=== PATIENT | female | born 1975 | race Two or more races ===

== ENCOUNTER 2021-03-09 09:05 | Emergency (ER) | payer SELFPAY ==
[2021-03-09 09:23] VITALS: BP 133/79; PULSE 82; TEMP 98.5; BMI 21.2
== END 2021-03-09 10:28 | disposition home or self-care (01) ==
LOC: JER 09:05
DX: J18.9 Pneumonia, unspecified organism (principal); Z11.52 Encounter for screening for COVID-19
CPT/HCPCS: 71046-TC-FY; 99283-25; C9803; U0003; U0005

== ENCOUNTER 2021-09-13 07:24 | Emergency (ER) | payer BC ==
[2021-09-13 07:48] VITALS: BP 118/70; PULSE 75; TEMP 98.4; BMI 23.0
[2021-09-13] MEDS ORDERED: ACETAMINOPHEN 500 MG TABLET (FP) PO ONE (08:48)
[2021-09-13] MEDS ORDERED: DALBAVANCIN HCL 1,500 MG in DEXTROSE 5%-WATER - 500 ML IVPB ONE (08:48)
[2021-09-13] MEDS ORDERED: DALBAVANCIN HCL 500 MG VIAL (RESTRICTED TO ID ONLY) IVPB ONE (09:36)
[2021-09-13] MEDS ORDERED: ACETAMINOPHEN 500 MG TABLET (FP) ONE (09:40)
[2021-09-13 10:26] LABS: BASO % 0.6 % (0-2.0); EOS % 0.9 % (0-4.5); HEMATOCRIT 36.8 % (32.4-45.2); HEMOGLOBIN 12.2 GM/dL (10.7-15.3); LYMPH % 19.3 % (8-40); MCH 27.6 pg (25.7-33.7); MCHC 33.2 g/dl (32.0-36.0); MEAN PLT VOLUME 8.6 fl (7.5-11.1); MONO % 7.2 % (3.8-10.2); PLATELET COUNT 281 10^3/uL (134-434); RBC 4.43 M/mm3 (3.60-5.2); RDW 13.5 % (11.6-15.6); WHITE BLOOD COUNT 5.9 K/mm3 (4.0-10.0)
[2021-09-13 10:55] LABS: ALBUMIN 3.2 g/dl (3.4-5.0); BLOOD UREA NITROGEN 16.7 mg/dL (7-18); CALCIUM 8.6 mg/dL (8.5-10.1)
[2021-09-13 10:58] LABS: CREATININE 0.6 mg/dL (0.55-1.3)
[2021-09-13 11:00] LABS: BILIRUBIN,TOTAL 0.4 mg/dL (0.2-1); TOT PROT 6.7 g/dl (6.4-8.2)
== END 2021-09-13 11:10 | disposition home or self-care (01) ==
LOC: JER 07:24
DX: L03.012 Cellulitis of left finger (principal); L03.114 Cellulitis of left upper limb
CPT/HCPCS: 36415; 73110-TC-LT-FY; 73130-TC-LT-FY; 80053; 85025; 87040; 99284-25; J0875

== ENCOUNTER 2022-12-08 08:08 | Emergency (ER) | payer BC ==
[2022-12-08 08:24] VITALS: BP 115/70; RESP 18; TEMP 98.5; BMI 21.2
[2022-12-08 10:29] LABS: CALCIUM 8.6 mg/dL (8.5-10.1)
[2022-12-08 10:30] LABS: ALBUMIN 3.5 g/dl (3.4-5.0); BLOOD UREA NITROGEN 14.9 mg/dL (7-18)
[2022-12-08 10:33] LABS: CREATININE 0.7 mg/dL (0.55-1.3)
[2022-12-08 10:35] LABS: BILIRUBIN,TOTAL 0.5 mg/dL (0.2-1); TOT PROT 6.9 g/dl (6.4-8.2)
[2022-12-08 11:20] LABS: BASO % 0.7 % (0-2.0); EOS % 3.2 % (0-4.5); HEMATOCRIT 37.5 % (32.4-45.2); HEMOGLOBIN 12.8 GM/dL (10.7-15.3); LYMPH % 33.1 % (8-40); MCH 28.3 pg (25.7-33.7); MCHC 34.2 g/dl (32.0-36.0); MEAN CELL VOLUME 82.9 fl (80-96); MEAN PLT VOLUME 8.2 fl (7.5-11.1); MONO % 7.1 % (3.8-10.2); NEUT % 55.9 % (42.8-82.8); PLATELET COUNT 282 10^3/uL (134-434); RBC 4.52 M/mm3 (3.60-5.2); RDW 13.3 % (11.6-15.6); WHITE BLOOD COUNT 5.4 K/mm3 (4.0-10.0)
[2022-12-08 13:09] LABS: EPI CELLS 2 /uL (0-25.1); HYALINE CASTS 0 /uL (0-3.1); PH,URINE 7.5 (5.0-8.0); URINE APPEARANCE CLEAR; URINE BACTERIA 35 /uL (0-1359); URINE BILIRUBIN NEGATIVE (NEGATIVE); URINE COLOR YELLOW; URINE GLUCOSE (UA) NEGATIVE (NEGATIVE); URINE KETONE NEGATIVE (NEGATIVE); URINE LEUK ESTERASE NEGATIVE (NEGATIVE); URINE NITRITE NEGATIVE (NEGATIVE); URINE PROTEIN NEGATIVE (NEGATIVE); URINE RBC 9 /uL (0-23.9); URINE UROBILINOGEN 0.2 mg/dL (0.2-1.0); URINE WBC 1 /uL (0-25.8)
[2022-12-08 13:42] VITALS: PULSE 85
== END 2022-12-08 13:42 | disposition home or self-care (01) ==
LOC: JERFT 08:08
DX: R31.9 Hematuria, unspecified (principal); S50.02XA Contusion of left elbow, initial encounter; S70.02XA Contusion of left hip, initial encounter; W10.8XXA Fall (on) (from) other stairs and steps, initial encounter
CPT/HCPCS: 0241U-QW; 36415; 71046-TC-FY; 73070-TC-LT-FY; 73610-TC-LT-FY; 74176-TC; 76775-TC; 80053; 81003; 84443; 84703; 85025; 87086; 99285-25